=== PATIENT | female | born 1985 | race Caucasian/White ===

== ENCOUNTER 2023-07-24 06:46 | Day surgery (SDC) | payer OTHER ==
[~2023-07-24] VITALS: Ht 160 cm; Wt 63.7 kg
[~2023-07-24 06:46] MED LIST: ETON68IM SC; MIRT1TAB PO; NS 1,000 ML IV ONE; REST30CA PO; VRAY1.5C PO; ZOLO100T PO
[2023-07-24] MEDS ORDERED: LIDOCAINE 2% 100MG/5ML SDV (FOR ANES.) As Ordered ONE (08:01)
[2023-07-24] MEDS ORDERED: propofoL 200 MG/20 ML VIAL As Ordered ONE (08:01)
[2023-07-24 08:33] VITALS: TEMP 98.8
[2023-07-24 08:53] VITALS: BP 108/56; O2SAT 100
== END 2023-07-24 08:55 | disposition home or self-care (01) ==
LOC: M OPP 06:46
PROVIDERS: ATTEND Internal Medicine Gastroenterology
DX: D12.5 Benign neoplasm of sigmoid colon (principal); K92.1 Melena; K64.8 Other hemorrhoids; Z83.710 Family history of adenomatous and serrated polyps; Z97.5 Presence of (intrauterine) contraceptive device; Z79.899 Other long term (current) drug therapy; F17.229 Nicotine dependence, chewing tobacco, with unspecified nicotine-induced disorders

== ENCOUNTER → 2024-07-03 | Outpatient (CLI) | payer OTHER ==
[~2024-07-03] MED LIST changes: -NS 1,000 ML IV ONE
== END ==
LOC: M LRY 14:47
PROVIDERS: ATTEND Internal Medicine Gastroenterology
DX: Z53.9 Procedure and treatment not carried out, unspecified reason (principal)

== ENCOUNTER → 2024-07-04 | Outpatient (CLI) | payer OTHER ==
[2024-07-04 13:16] LABS: CLOSTRIDIUM DIFFICILE PCR NEGATIVE (NEGATIVE)
[2024-07-04 14:01] LABS: THYROID STIMULATING HORMONE 1.959 uIU/ML (0.55-4.78)
[2024-07-04 14:02] LABS: FREE T4 0.99 NG/DL (0.89-1.76)
[2024-07-04 15:00] LABS: IMMUNOGLOBULIN A 192.8 MG/DL (40-350)
== END ==
LOC: M LAB 11:17
PROVIDERS: ATTEND Internal Medicine Gastroenterology
DX: K58.2 Mixed irritable bowel syndrome (principal); R19.7 Diarrhea, unspecified; A04.71 Enterocolitis due to Clostridium difficile, recurrent